=== PATIENT | male | born 1960 | race Two or more races ===

== ENCOUNTER 2024-05-30 06:23 | Day surgery (SDC) | payer BC, SELFPAY ==
[2024-05-30 08:32] LABS: Glucose - Point of Care 117 mg/dl (70-99)
== END 2024-05-30 09:53 | disposition home or self-care (01) ==
LOC: GI 06:23
PROVIDERS: ATTENDING PHYSICIAN Internal Medicine Gastroenterology
DX: Z12.11 Encounter for screening for malignant neoplasm of colon (principal); K57.30 Diverticulosis of large intestine without perforation or abscess without bleeding; K64.8 Other hemorrhoids; K22.2 Esophageal obstruction; K44.9 Diaphragmatic hernia without obstruction or gangrene; K31.89 Other diseases of stomach and duodenum; R12 Heartburn
CPT/HCPCS: 43239; G0121; 88305; 82962; 88342